=== PATIENT | male | born 1945 | race Caucasian/White ===

== ENCOUNTER 2016-12-25 10:55 | Outpatient (CLI) | payer MEDICARE, OTHER | END 2016-12-25 10:56 | disposition home or self-care (01) | DX: R03.0 Elevated blood-pressure reading, without diagnosis of hypertension (principal); N40.1 Benign prostatic hyperplasia with lower urinary tract symptoms; E78.5 Hyperlipidemia, unspecified ==

== ENCOUNTER 2017-03-17 11:13 | Outpatient (CLI) | payer MEDICARE, OTHER | END 2017-03-17 11:14 | disposition short-term general hospital (02) | DX: M25.561 Pain in right knee (principal); M79.89 Other specified soft tissue disorders | CPT/HCPCS: A0425; A0429 ==

== ENCOUNTER 2017-08-08 09:24 | Outpatient (CLI) | payer MEDICARE, OTHER ==
[2017-08-08 13:23] LABS: BASOPHILS % (AUTO) 0.9 %; EOSINOPHILS # (AUTO) 0.1 10^3/uL (0.0-0.7); EOSINOPHILS % (AUTO) 1.5 %; HGB - HEMOGLOBIN 15.3 g/dL (14.0-18.0); LYMPHOCYTES # (AUTO) 1.2 10^3/uL (1.5-3.5); LYMPHOCYTES % (AUTO) 30.4 %; MEAN CORPUSCULAR HGB CONC 33.4 g/dL (32.0-36.0); MEAN PLATELET VOLUME 10.2 fL (7.4-11.4); MONOCYTES # (AUTO) 0.4 10^3/uL (0.0-1.0); NEUTROPHILS # (AUTO) 2.2 10^3/uL (1.5-6.6); NEUTROPHILS % (AUTO) 57.2 %; NUCLEATED RED BLOOD CELLS AUTO 0.2 /100WBC; RED BLOOD COUNT 4.94 10^6/uL (4.70-6.10); RED CELL DISTRIBUTION WIDTH 13.3 % (12.0-15.0); UNCORRECTED WHITE BLOOD COUNT 3.9 x10^3/uL; WHITE BLOOD COUNT 3.9 x10^3/uL (4.8-10.8)
== END 2017-08-08 09:25 | disposition home or self-care (01) ==
LOC: LAB.WCP 09:24
PROVIDERS: ATTEND Family Medicine
DX: R68.82 Decreased libido (principal); R03.0 Elevated blood-pressure reading, without diagnosis of hypertension
CPT/HCPCS: 36415; 84403; 84443; 85025

== ENCOUNTER 2017-09-09 13:03 | Outpatient (CLI) | payer MEDICARE, OTHER | END 2017-09-09 13:04 | disposition home or self-care (01) | LOC: SC 13:03 | PROVIDERS: ATTEND Internal Medicine Pulmonary Disease | DX: G47.00 Insomnia, unspecified (principal); G47.30 Sleep apnea, unspecified | CPT/HCPCS: 99203; G0463; 99212 ==

== ENCOUNTER 2018-01-22 15:59 | Emergency (ER) | payer MEDICARE, OTHER ==
--- NOTE | 2018-01-22 16:25 | ED Physician Documentation ---
PD HPI DYSPNEA - Stated complaint Stated Complaint: productive cou/FEVER - Chief complaint Chief Complaint: Resp - History obtained from History obtained from: Patient (3 days of productive cough with green sputum, mild shortness of breath but fevers chills and myalgias as well.), Family Review of Systems Constitutional: reports: Fever, Chills, Sweats Nose: reports: Rhinorrhea / runny nose, Sinus pressure / pain Throat: reports: Sore throat Respiratory: reports: Dyspnea, Cough GI: denies: Abdominal Pain PD PAST MEDICAL HISTORY - Past Medical History Neuro: None : Benign prostate hypertrophy Musculoskeletal: Fibromyalgia - Past Surgical History Past Surgical History: Yes Ortho: Rotator cuff repair, Arthroscopic surgery Cardiovascular: Angioplasty - Present Medications Home Medications: Ambulatory Orders Medication Instructions Recorded Confirmed Oseltamivir [Tamiflu] 75 mg PO BID #10 capsule 01/22/18 - Allergies Allergies/Adverse Reactions: Allergies Allergy/AdvReac Type Severity Reaction Status Date / Time flu and pnu vaccine Allergy Unknown Uncoded 01/22/18 16:07 - Social History Does the pt smoke?: No Smoking Status: Never smoker Does the pt drink ETOH?: Yes Does the pt have substance abuse?: No - Immunizations Immunizations are current?: No - POLST Patient has POLST: Yes PD ED PE NORMAL - Vitals Vital signs reviewed: Yes - General General: Alert and oriented X 3, No acute distress - HEENT HEENT: PERRL, EOMI, Ears normal, Pharynx benign - Neck Neck: Supple, no meningeal sign, No bony TTP - Cardiac Cardiac: RRR, No murmur - Respiratory Respiratory: No respiratory distress, Other (Slightly rhonchorous and diminished throughout) - Abdomen Abdomen: Non tender - Derm Derm: No rash - Neuro Neuro: Alert and oriented X 3, Normal speech Results - Vitals Vitals: Vital Signs - 24 hr 01/22/18 16:04 Temperature 38.5 C H Heart Rate 81 Respiratory 16 Rate Blood Pressure 163/66 H O2 Saturation 97 Oxygen O2 Source Room air - Labs Labs: Laboratory Tests 01/22/18 01/22/18 01/22/18 16:39 16:39 16:53 WBC 7.3 RBC 4.52 L Hgb 14.2 Hct 41.1 L MCV 90.8 MCH 31.3 H MCHC 34.5 RDW 12.8 Plt Count 115 L MPV 10.0 Neut # 6.3 Lymph # 0.3 L [place] # 0.6 Eos # 0.0 Baso # 0.0 Absolute Nucleated RBC 0.00 Nucleated RBC % 0.0 Sodium 133 L Potassium 3.8 Chloride 102 Carbon Dioxide 22 Anion Gap 9.0 BUN 13 Creatinine 0.9 Estimated GFR (MDRD) 83 L Glucose 165 H Calcium 8.8 Total Bilirubin 0.5 AST 95 H ALT 99 H Alkaline Phosphatase 93 Total Protein 6.3 L Albumin 3.9 Globulin 2.4 Albumin/Globulin Ratio 1.6 Lipase 25 Influenza A (Rapid) Negative Influenza B (Rapid) POSITIVE H Influenza Types A,B Ag + H - Rads (name of study) 2v chest Radiology: EMP read contemporaneously (NAD) Departure - Departure Disposition: 01 Home, Self Care Clinical Impression: Influenza B Condition: Good Record reviewed to determine appropriate education?: Yes Instructions: ED Flu Prescriptions: Oseltamivir [Tamiflu] 75 mg PO BID #10 capsule Comments: Call your doctor to arrange a follow-up appointment, make the next available appointment. In the interim, return anytime if worse or if new symptoms develop. Your blood pressure was elevated today on check into the emergency department. This does not mean that you have hypertension, it is a common phenomenon to come to the emergency department and have elevated blood pressure. I recommend that you see your primary care physician within the week to have it rechecked when you are feeling better.
[2018-01-22 16:45] LABS: BASOPHILS % (AUTO) 0.5 %; EOSINOPHILS % (AUTO) 0.3 %; HGB - HEMOGLOBIN 14.2 g/dL (14.0-18.0); LYMPHOCYTES # (AUTO) 0.3 10^3/uL (1.5-3.5); LYMPHOCYTES % (AUTO) 4.6 %; MEAN CORPUSCULAR HEMOGLOBIN 31.3 pg (27.0-31.0); MEAN CORPUSCULAR HGB CONC 34.5 g/dL (32.0-36.0); MEAN CORPUSCULAR VOLUME 90.8 fL (80.0-94.0); MONOCYTES # (AUTO) 0.6 10^3/uL (0.0-1.0); MONOCYTES % (AUTO) 8.5 %; NEUTROPHILS # (AUTO) 6.3 10^3/uL (1.5-6.6); NEUTROPHILS % (AUTO) 86.1 %; PLT - PLATELET COUNT 115 10^3/uL (130-450); RED BLOOD COUNT 4.52 10^6/uL (4.70-6.10); RED CELL DISTRIBUTION WIDTH 12.8 % (12.0-15.0); WHITE BLOOD COUNT 7.3 x10^3/uL (4.8-10.8)
--- NOTE | 2018-01-22 16:49 | XRAY Report ---
EXAM: CHEST RADIOGRAPHY EXAM DATE: 01/22/2018 04:36 PM. CLINICAL HISTORY: Productive cough. COMPARISON: 08/31/2014. TECHNIQUE: 2 views. FINDINGS: Lungs/Pleura: Hyperexpanded with flattened diaphragm and coarse lung markings compatible with COPD. N o localized infiltrate, consolidation, effusion, or pneumothorax. Mediastinum: Heart and mediastinal contours are unremarkable. Other: Degenerative changes. IMPRESSION: No acute disease. [facility] Referring Provider Line: [phone] SITE ID: [id number]
[2018-01-22 16:56] LABS: ALBUMIN 3.9 g/dL (3.2-5.5); ALBUMIN/GLOBULIN RATIO 1.6 (1.0-2.2); BILIRUBIN,TOTAL 0.5 mg/dL (0.2-1.0); CALCIUM 8.8 mg/dL (8.5-10.3); CREATININE 0.9 mg/dL (0.6-1.2); TOTAL PROTEIN 6.3 g/dL (6.7-8.2)
[2018-01-22 17:47] VITALS: BP 109/65
== END 2018-01-22 17:48 | disposition home or self-care (01) ==
LOC: ED 15:59
DX: J10.1 Influenza due to other identified influenza virus with other respiratory manifestations (principal); R03.0 Elevated blood-pressure reading, without diagnosis of hypertension
CPT/HCPCS: 36415; 71046; 80053; 83690; 85025; 87275; 87276; 99283; 99284

== ENCOUNTER 2018-01-23 23:14 | Emergency (ER) | payer MEDICARE, OTHER ==
--- NOTE | 2018-01-24 00:41 | ED Physician Documentation ---
PD HPI DYSPNEA - Stated complaint Stated Complaint: SOA - Chief complaint Chief Complaint: Resp - History obtained from History obtained from: Patient - History of Present Illness Timing - onset: How many days ago (2-3) Timing - duration: Days Timing - details: Gradual onset, Waxing and waning Pain level now: 6 (generalized myalgias, ORELLANA, chest pain with coughing) Improved by: Rest Worsened by: Coughing Associated symptoms: Fever, Cough, Chest pain / discomfort (only with coughing) . No: Wheezing, Palpitations, Bilateral edema, Unilateral edema Similar symptoms before: Diagnosis (influenza B) Recently seen: Emergency Dept - Additional information Additional information: T+R from this ED 2 days ago, diagnosed with influenza B and prescribed Tamiflu. Returns due to increasing chest congestion as well as generalized headache and myalgias. He has taken hydrocodone as well as oxycodone that he has for fibromyalgia (PRN rx) with some relief, but is out of the oxycodone (he only had few tabs remaining from old rx) PD PAST MEDICAL HISTORY - Past Medical History Past Medical History: Yes Respiratory: Pneumonia Neuro: None : Benign prostate hypertrophy Musculoskeletal: Fibromyalgia - Past Surgical History Past Surgical History: Yes Ortho: Rotator cuff repair, Arthroscopic surgery Cardiovascular: Angioplasty - Present Medications Home Medications: Ambulatory Orders Medication Instructions Recorded Confirmed Oseltamivir [Tamiflu] 75 mg PO BID #10 capsule 01/22/18 Tamsulosin [Flomax] 01/23/18 oxyCODONE [Roxicodone] 01/23/18 traMADol [Ultram] 01/23/18 Azithromycin 250 mg PO DAILY #4 tablet 01/24/18 oxyCODONE [Roxicodone] 5 - 10 mg PO Q6H PRN #20 tablet 01/24/18 - Allergies Allergies/Adverse Reactions: Allergies Allergy/AdvReac Type Severity Reaction Status Date / Time flu and pnu vaccine Allergy Unknown Uncoded 01/22/18 16:07 - Social History Does the pt smoke?: No Smoking Status: Never smoker Does the pt drink ETOH?: Yes Does the pt have substance abuse?: No - Immunizations Immunizations are current?: No - POLST Patient has POLST: Yes PD ED PE NORMAL - Vitals Vital signs reviewed: Yes - General General: Alert and oriented X 3, No acute distress, Well developed/nourished - HEENT HEENT: Moist mucous membranes - Neck Neck: Supple, no meningeal sign - Cardiac Cardiac: RRR, No murmur, No gallop, No rub - Respiratory Respiratory: No respiratory distress, Other (bibasilar rhonchi without wheezing ; there is good air flow bilaterally. occasional productive cough during H+P ( productive of thick green/brown sputum)) - Abdomen Abdomen: Soft, Non tender - Extremities Extremities: No edema Results - Vitals Vitals: Vital Signs - 24 hr 01/23/18 01/23/18 01/24/18 23:21 23:36 00:25 Temperature 37.4 C Heart Rate 81 82 81 Respiratory 20 17 18 Rate Blood Pressure 146/69 H 144/63 H 117/73 O2 Saturation 94 95 96 01/24/18 01/24/18 01:00 02:00 Temperature 37.0 C Heart Rate 75 74 Respiratory 18 17 Rate Blood Pressure 118/65 117/84 H O2 Saturation 96 96 Oxygen O2 Source Room air - Rads (name of study) chest xray Radiology: Prelim report reviewed, See rad report PD MEDICAL DECISION MAKING - ED course Complexity details: reviewed old records, reviewed results, re-evaluated patient , considered differential, d/w patient Departure - Departure Disposition: 01 Home, Self Care Clinical Impression: Influenza B Pneumonia Qualifiers: Pneumonia type: due to unspecified organism Laterality: bilateral Lung location : lower lobe of lung Qualified Code(s): J18.9 - Pneumonia, unspecified organism Condition: Good Instructions: ED Flu, ED Pneumonia Adult Follow-Up: Juliann Atkinson DO [Primary Care Provider] - (3-5 days if symptoms persist) Prescriptions: Azithromycin 250 mg PO DAILY #4 tablet oxyCODONE [Roxicodone] 5 - 10 mg PO Q6H PRN #20 tablet PRN Reason: Pain Comments: You should also take guaifenesin, which is an yjop-smw-rgloxui expectorant ( Mucinex is one brand name, although generic will work just as well). This will help loosen the chest congestion and allow the cough to be more productive. Discharge Date/Time: 01/24/18 02:05
--- NOTE | 2018-01-24 01:15 | XRAY Preliminary Report ---
Exam: XR CHEST 2 VIEW X-RAY IMPRESSION: 1. Patchy bilateral lower lobe opacities concerning for developing infiltrates. Probable small effusi ons. 2. No pneumothorax. [facility] SITE ID: [id number]
[2018-01-24] MEDS ORDERED: oxyCODONE 5 MG TABLET PO STA (01:35)
[2018-01-24] MEDS ORDERED: AZITHROMYCIN 250 MG TABLET PO STA (01:51)
[2018-01-24] MEDS ORDERED: guaiFENesin 600 MG TABLET PO SCH (02:00)
--- NOTE | 2018-01-24 02:00 | XRAY Report ---
EXAM: CHEST RADIOGRAPHY EXAM DATE: 01/24/2018 01:09 AM. CLINICAL HISTORY: Cough, dyspnea, influenza. COMPARISON: 01/22/2018. TECHNIQUE: 2 views. FINDINGS: Lungs/Pleura: Patchy right lower lobe opacities are noted. Platelike densities also noted at the left lung base. Small effusions on the lateral view. No pneumothorax. Mediastinum: Heart and mediastinal contours are unremarkable. Other: None. IMPRESSION: 1. Patchy bilateral lower lobe opacities concerning for developing infiltrates. Probable small effusi ons. 2. No pneumothorax. [facility] Referring Provider Line: [phone] SITE ID: [id number]
[2018-01-24 02:07] VITALS: BP 117/84
[2018-01-24] MEDS ORDERED: guaiFENesin 600 MG TABLET PO ONE (02:07)
== END 2018-01-24 02:05 | disposition home or self-care (01) ==
LOC: ED 23:14
DX: J10.00 Influenza due to other identified influenza virus with unspecified type of pneumonia (principal)
CPT/HCPCS: 71046; 99283; 99284; A9270

== ENCOUNTER 2018-01-26 19:56 | Emergency (ER) | payer MEDICARE, OTHER ==
[2018-01-26] MEDS ORDERED: LIDOCAINE VISCOUS 2% 15 ML UDC MM STA (21:24)
[2018-01-26] MEDS ORDERED: MAG HYDROX/AL HYDROX/SIMETH 30 ML UDC PO STA (21:25)
[2018-01-26] MEDS ORDERED: SUCRALFATE 1 GM/10 ML UDC PO STA (21:25)
[2018-01-26] MEDS ORDERED: ONDANSETRON ODT 4 MG TABLET TL STA (21:25)
--- NOTE | 2018-01-26 21:28 | ED Physician Documentation ---
History of Present Illness - Stated complaint Stated Complaint: NAUSEA/ORELLANA - Chief complaint Chief Complaint: General - History obtained from History obtained from: Patient, Family - History of Present Illness Timing: How many days ago (2) - Additonal information Additional information: 72-year-old male is been sick with influenza for the past 6 days. He feels that the influenza portion of this illness appears to be improving. He has developed some nausea and has not been able to eat for the past 36 hours. He has been able to drink some fluids and he states that he feels that the rest of the illness the fever cough congestion sore throat have all improved. He does have allodynia he does have some fibromyalgia and this typically happens to him when he is sick that he has pain all over. He has been taking some ibuprofen and he has been taking this on an empty stomach. He has not had problems before taking pills and getting nauseated from any type of medication. He does state that he did not take the azithromycin as he felt that his illness was getting substantially better.He did talk to Michelet Huizar who told him it would probably be a good idea to get some Zofran. Review of Systems Constitutional: reports: Myalgias, Fatigue. denies: Fever, Chills Eyes: denies: Decreased vision Ears: denies: Ear pain Nose: denies: Rhinorrhea / runny nose, Congestion Throat: denies: Sore throat Cardiac: denies: Chest pain / pressure, Palpitations Respiratory: denies: Dyspnea, Cough GI: reports: Abdominal Pain, Nausea : denies: Dysuria, Frequency Skin: denies: Rash Musculoskeletal: reports: Back pain. denies: Neck pain Neurologic: denies: Generalized weakness, Focal weakness, Numbness PD PAST MEDICAL HISTORY - Past Medical History Past Medical History: Yes Respiratory: Pneumonia Neuro: None : Benign prostate hypertrophy Musculoskeletal: Fibromyalgia - Past Surgical History Past Surgical History: Yes Ortho: Rotator cuff repair, Arthroscopic surgery Cardiovascular: Angioplasty - Present Medications Home Medications: Ambulatory Orders Medication Instructions Recorded Confirmed Oseltamivir [Tamiflu] 75 mg PO BID #10 capsule 01/22/18 Tamsulosin [Flomax] 01/23/18 oxyCODONE [Roxicodone] 01/23/18 traMADol [Ultram] 01/23/18 Azithromycin 250 mg PO DAILY #4 tablet 01/24/18 oxyCODONE [Roxicodone] 5 - 10 mg PO Q6H PRN #20 tablet 01/24/18 Ondansetron Odt [Zofran] 4 mg TL Q6H PRN #10 tablet 01/26/18 Sucralfate [Carafate] 1 gm PO ACHS #30 tablet 01/26/18 - Allergies Allergies/Adverse Reactions: Allergies Allergy/AdvReac Type Severity Reaction Status Date / Time flu and pnu vaccine Allergy Unknown Uncoded 01/26/18 20:12 - Social History Does the pt smoke?: No Smoking Status: Never smoker Does the pt drink ETOH?: Yes Does the pt have substance abuse?: No - Immunizations Immunizations are current?: No - POLST Patient has POLST: Yes PD ED PE NORMAL - Vitals Vital signs reviewed: Yes (hypertensive ) - General General: Alert and oriented X 3, No acute distress, Well developed/nourished - HEENT HEENT: Atraumatic, PERRL, EOMI, Ears normal, Other (dry mucous membranes) - Neck Neck: Supple, no meningeal sign, No bony TTP - Cardiac Cardiac: RRR, No murmur - Respiratory Respiratory: No respiratory distress, Clear bilaterally - Abdomen Abdomen: Soft, Other (mild epigastric tenderness) - Back Back: No CVA TTP, No spinal TTP - Derm Derm: Normal color, Warm and dry, No rash - Extremities Extremities: No deformity, Normal ROM s pain, No edema - Neuro Neuro: Alert and oriented X 3, vault person 2-12 intact, No motor deficit, No sensory deficit, Normal speech Eye Opening: Spontaneous Motor: Obeys Commands Verbal: Oriented GCS Score: 15 - Psych Psych: Normal mood, Normal affect Results - Vitals Vitals: Vital Signs - 24 hr 01/26/18 01/26/18 20:09 21:40 Temperature 36.8 C 36.9 C Heart Rate 65 65 Respiratory 16 20 Rate Blood Pressure 156/80 H 165/83 H O2 Saturation 99 98 Oxygen O2 Source Room air PD MEDICAL DECISION MAKING - ED course Complexity details: reviewed old records, reviewed results, re-evaluated patient , considered differential, d/w patient, d/w family ED course: 72-year-old male with nearly resolved influenza has developed some nausea and has not been able to eat. Here in the emergency department he is given some viscous lidocaine and Mylanta with Carafate and this seems to have quelled his stomach quite a bit he also took some Zofran and his nausea is now resolved. I suspect that his symptoms that he is come to the emergency department they are related to gastritis related to taking ibuprofen on an empty stomach. I recommended that he take some Pepcid AC for the next week and I prescribed provided a prescription for some Carafate and some Zofran. Departure - Departure Disposition: Home, Self Care Clinical Impression: Gastritis Qualifiers: Gastritis type: unspecified gastritis Chronicity: acute Gastritis bleeding: without bleeding Qualified Code(s): K29.00 - Acute gastritis without bleeding Condition: Stable Instructions: ED PUD Vs Gastritis Follow-Up: Juliann Atkinson DO [Primary Care Provider] - Prescriptions: Ondansetron Odt [Zofran] 4 mg TL Q6H PRN #10 tablet PRN Reason: Nausea / Vomiting Sucralfate [Carafate] 1 gm PO ACHS #30 tablet Comments: Today it appears that your influenza illness is nearly resolved and it also appears that you have an upset stomach very likely related to the ingestion of ibuprofen without food. This is diagnosed as gastritis or irritation of the stomach lining and this should heal up fairly quickly. I recommend that you take some Pepcid AC for the next week and take the Carafate as prescribed. In the future when you are taking ibuprofen make certain you are taking this with food.
[2018-01-26 21:41] VITALS: BP 165/83
[2018-01-26] MEDS ORDERED: ONDANSETRON ODT 4 MG Prepack 2 TL PRN (22:03)
== END 2018-01-26 22:12 | disposition home or self-care (01) ==
LOC: ED 19:56
DX: K29.00 Acute gastritis without bleeding (principal)
CPT/HCPCS: 99283; A9270; Q0162

== ENCOUNTER 2018-02-17 09:50 | Outpatient (CLI) | payer MEDICARE, OTHER ==
[2018-02-17 12:30] LABS: BASOPHILS # (AUTO) 0.1 10^3/uL (0.0-0.1); BASOPHILS % (AUTO) 2.6 %; EOSINOPHILS # (AUTO) 0.1 10^3/uL (0.0-0.7); EOSINOPHILS % (AUTO) 1.9 %; HGB - HEMOGLOBIN 15.3 g/dL (14.0-18.0); LYMPHOCYTES # (AUTO) 1.5 10^3/uL (1.5-3.5); LYMPHOCYTES % (AUTO) 35.4 %; MEAN CORPUSCULAR HEMOGLOBIN 31.4 pg (27.0-31.0); MEAN CORPUSCULAR HGB CONC 34.2 g/dL (32.0-36.0); MEAN CORPUSCULAR VOLUME 91.9 fL (80.0-94.0); MEAN PLATELET VOLUME 10.2 fL (7.4-11.4); MONOCYTES # (AUTO) 0.5 10^3/uL (0.0-1.0); NEUTROPHILS # (AUTO) 2.1 10^3/uL (1.5-6.6); NEUTROPHILS % (AUTO) 49.1 %; PLT - PLATELET COUNT 197 10^3/uL (130-450); RED BLOOD COUNT 4.88 10^6/uL (4.70-6.10); RED CELL DISTRIBUTION WIDTH 13.1 % (12.0-15.0); WHITE BLOOD COUNT 4.2 x10^3/uL (4.8-10.8)
[2018-02-17 12:59] LABS: ALBUMIN 4.2 g/dL (3.2-5.5); ALBUMIN/GLOBULIN RATIO 1.4 (1.0-2.2); ALKALINE PHOSPHATASE 63 IU/L (42-121); ALT ALANINE AMINOTRANSFERASE 22 IU/L (10-60); AST ASPARTATE AMINOTRANSFERASE 25 IU/L (10-42); BUN - BLOOD UREA NITROGEN 16 mg/dL (6-20); CALCIUM 9.4 mg/dL (8.5-10.3); CARBON DIOXIDE - CO2 29 mmol/L (21-32); CHLORIDE 102 mmol/L (101-111); CHOL/HDL RATIO 3.1 (<5.0); CHOLESTEROL 219 mg/dL; CREATININE 0.9 mg/dL (0.6-1.2); GFR - MDRD 83 (>89); GLUCOSE 90 mg/dL (70-100); HDL CHOLESTEROL 70 mg/dL; LDL CHOLESTEROL,CALCULATED 126 mg/dL; LDL/HDL RATIO 1.8 (<3.6); SODIUM 137 mmol/L (135-145); TOTAL PROTEIN 7.1 g/dL (6.7-8.2); VLDL CHOLESTEROL 23 mg/dL
[2018-02-17 13:00] LABS: PSA SCREEN (Z12.5) 2.68 ng/mL (0.000-2.000)
== END 2018-02-17 09:51 | disposition home or self-care (01) ==
LOC: LAB.WCP 09:50
PROVIDERS: ATTEND Family Medicine
DX: R03.0 Elevated blood-pressure reading, without diagnosis of hypertension (principal); E78.9 Disorder of lipoprotein metabolism, unspecified; E55.9 Vitamin D deficiency, unspecified; E29.8 Other testicular dysfunction; Z12.5 Encounter for screening for malignant neoplasm of prostate
CPT/HCPCS: 36415; 80053; 80061; 82306; 84403; 85025; G0103; 83721; 84153

== ENCOUNTER 2018-08-14 09:56 | Outpatient (CLI) | payer MEDICARE, OTHER ==
[2018-08-14] MEDS ORDERED: IOPAMIDOL-300 100 ML VIAL ONE (10:33)
--- NOTE | 2018-08-15 06:28 | CT Report ---
Reason: COUGH Procedure Date: 08/14/2018 Accession Number: [id number] / [id number] Procedure: CT - Chest W/ CPT Code: FULL RESULT: EXAM: CT CHEST EXAM DATE: 08/14/2018 11:13 AM. CLINICAL HISTORY: COUGH. COMPARISONS: None. TECHNIQUE: Routine helical CT imaging was performed through the chest. IV contrast: Isovue-300, 100 cc. Reconstructions: Coronal and sagittal. In accordance with CT protocol optimization, one or more of the following dose reduction techniques were utilized for this exam: automated exposure control, adjustment of mA and/or KV based on patient size, or use of iterative reconstructive technique. FINDINGS: Lungs/Pleura: Mild bibasilar atelectasis. No alveolar consolidation. No pleural effusion. Possible emphysema. No pneumothorax. Mediastinum: Heart size is normal. Coronary artery calcifications. Normal sized mediastinal lymph nodes. Ascending aorta measures 3.1 cm. No aortic dissection. Bones: Degenerative changes in the spine. Mild scoliosis. Visualized Abdomen: Unremarkable. Other: None. IMPRESSION: 1. Possible emphysema with mild bibasilar atelectasis. 2. Coronary artery calcifications. [facility]
[2018-08-19] MEDS ORDERED: IOPAMIDOL-300 100 ML VIAL IVP ONE (07:36)
== END 2018-08-14 09:57 | disposition home or self-care (01) ==
LOC: LAB 09:56 → DI 09:57
PROVIDERS: ATTEND Family Medicine
DX: R05 Cough (principal)
CPT/HCPCS: 36415; 71260; 82565; Q9967

== ENCOUNTER 2019-05-20 08:00 | Outpatient (CLI) | payer MEDICARE, OTHER ==
[2019-05-20 19:34] LABS: BASOPHILS # (AUTO) 0.1 10^3/uL (0.0-0.1); BASOPHILS % (AUTO) 1.2 %; EOSINOPHILS # (AUTO) 0.1 10^3/uL (0.0-0.7); EOSINOPHILS % (AUTO) 0.8 %; HGB - HEMOGLOBIN 15.9 g/dL (14.0-18.0); LYMPHOCYTES # (AUTO) 0.9 10^3/uL (1.5-3.5); MEAN CORPUSCULAR HEMOGLOBIN 31.9 pg (27.0-31.0); MEAN CORPUSCULAR HGB CONC 33.1 g/dL (32.0-36.0); MEAN CORPUSCULAR VOLUME 96.4 fL (80.0-94.0); MEAN PLATELET VOLUME 12.4 fL (7.4-11.4); MONOCYTES # (AUTO) 0.6 10^3/uL (0.0-1.0); MONOCYTES % (AUTO) 9.3 %; NEUTROPHILS # (AUTO) 4.4 10^3/uL (1.5-6.6); NEUTROPHILS % (AUTO) 73.5 %; PLT - PLATELET COUNT 165 10^3/uL (130-450); RED BLOOD COUNT 4.99 10^6/uL (4.70-6.10); RED CELL DISTRIBUTION WIDTH 13.1 % (12.0-15.0)
== END 2019-05-20 08:01 | disposition home or self-care (01) ==
LOC: LAB.R 08:00
PROVIDERS: ATTEND Family Medicine
DX: E29.8 Other testicular dysfunction (principal)
CPT/HCPCS: 36415; 84403; 85025

== ENCOUNTER 2019-07-03 13:21 | Outpatient (CLI) | payer MEDICARE, OTHER ==
[~2019-07-03 13:21] MED LIST: ALBUTEROL NEB 2.5 MG/3 ML INH ONE
== END 2019-07-03 13:22 | disposition home or self-care (01) ==
LOC: RT 13:21
PROVIDERS: ATTEND Family Medicine
DX: R05 Cough (principal)
CPT/HCPCS: 94010; 94729

== ENCOUNTER 2019-09-11 10:20 | Outpatient (CLI) | payer MEDICARE, OTHER ==
--- NOTE | 2019-09-13 02:10 | Ultrasound Report ---
Reason: BONE SOFT TISSUE AND SKIN NEOPLASM Procedure Date: 09/11/2019 Accession Number: [id number] / [id number] Procedure: US - Chest CPT Code: FULL RESULT: EXAM: ABDOMEN ULTRASOUND LIMITED EXAM DATE: 09/11/2019 11:25 AM. CLINICAL HISTORY: BONE SOFT TISSUE AND SKIN NEOPLASM. COMPARISON: None. TECHNIQUE: Real-time scanning was performed with static images obtained. FINDINGS: Scanning of the epigastric region of interest demonstrates a small anterior abdominal wall hernia, with hernia neck measuring 1 cm. Fat is contained within the hernia sac, but no bowel herniation is identified. IMPRESSION: Small fat-containing hernia in the midline epigastrium. [facility]
== END 2019-09-11 10:21 | disposition home or self-care (01) ==
LOC: DI 10:20
PROVIDERS: ATTEND Family Medicine
DX: K43.9 Ventral hernia without obstruction or gangrene (principal)
CPT/HCPCS: 76604

== ENCOUNTER 2020-05-13 08:15 | Outpatient (CLI) | payer MEDICARE, OTHER ==
[2020-05-13 12:17] LABS: BASOPHILS # (AUTO) 0.1 10^3/uL (0.0-0.1); BASOPHILS % (AUTO) 0.9 %; EOSINOPHILS # (AUTO) 0.1 10^3/uL (0.0-0.7); EOSINOPHILS % (AUTO) 0.9 %; LYMPHOCYTES % (AUTO) 26.7 %; MEAN CORPUSCULAR HEMOGLOBIN 31.3 pg (27.0-31.0); MEAN CORPUSCULAR HGB CONC 33.1 g/dL (32.0-36.0); MEAN CORPUSCULAR VOLUME 94.3 fL (80.0-94.0); MEAN PLATELET VOLUME 12.5 fL (7.4-11.4); MONOCYTES # (AUTO) 0.6 10^3/uL (0.0-1.0); MONOCYTES % (AUTO) 8.3 %; NEUTROPHILS # (AUTO) 4.6 10^3/uL (1.5-6.6); NEUTROPHILS % (AUTO) 62.8 %; PLT - PLATELET COUNT 184 10^3/uL (130-450); RED BLOOD COUNT 5.12 10^6/uL (4.70-6.10); RED CELL DISTRIBUTION WIDTH 12.7 % (12.0-15.0); WHITE BLOOD COUNT 7.4 x10^3/uL (4.8-10.8)
[2020-05-13 13:07] LABS: ALBUMIN 4.3 g/dL (3.2-5.5); ALBUMIN/GLOBULIN RATIO 1.8 (1.0-2.2); ALKALINE PHOSPHATASE 55 IU/L (42-121); ALT ALANINE AMINOTRANSFERASE 19 IU/L (10-60); AST ASPARTATE AMINOTRANSFERASE 19 IU/L (10-42); BILIRUBIN,TOTAL 1.1 mg/dL (0.2-1.0); BUN - BLOOD UREA NITROGEN 23 mg/dL (6-20); CALCIUM 9.8 mg/dL (8.5-10.3); CARBON DIOXIDE - CO2 29 mmol/L (21-32); CHLORIDE 100 mmol/L (101-111); CHOL/HDL RATIO 2.6 (<5.0); CHOLESTEROL 229 mg/dL; CREATININE 0.9 mg/dL (0.6-1.2); GLUCOSE 86 mg/dL (70-100); HDL CHOLESTEROL 89 mg/dL; LDL CHOLESTEROL,CALCULATED 128 mg/dL; LDL/HDL RATIO 1.4 (<3.6); SODIUM 138 mmol/L (135-145); TOTAL PROTEIN 6.7 g/dL (6.7-8.2); VLDL CHOLESTEROL 12 mg/dL
== END 2020-05-13 23:59 | disposition home or self-care (01) ==
LOC: LAB.WCP 08:15
PROVIDERS: ATTEND Family Medicine
DX: Z79.891 Long term (current) use of opiate analgesic (principal); Z12.5 Encounter for screening for malignant neoplasm of prostate; E78.5 Hyperlipidemia, unspecified; E29.8 Other testicular dysfunction; R05 Cough; D49.2 Neoplasm of unspecified behavior of bone, soft tissue, and skin; M79.7 Fibromyalgia
CPT/HCPCS: 36415; 80053; 80061; 84403; 84443; 85025; G0103; 83721; 84153

== ENCOUNTER 2021-05-04 08:00 | Outpatient (CLI) | payer MEDICARE, OTHER ==
[2021-05-04 17:54] LABS: BASOPHILS # (AUTO) 0.1 10^3/uL (0.0-0.1); BASOPHILS % (AUTO) 1.4 %; EOSINOPHILS # (AUTO) 0.1 10^3/uL (0.0-0.7); EOSINOPHILS % (AUTO) 2.3 %; HGB - HEMOGLOBIN 16.3 g/dL (14.0-18.0); LYMPHOCYTES # (AUTO) 1.1 10^3/uL (1.5-3.5); LYMPHOCYTES % (AUTO) 32.4 %; MEAN CORPUSCULAR HEMOGLOBIN 32.5 pg (27.0-31.0); MEAN CORPUSCULAR HGB CONC 33.3 g/dL (32.0-36.0); MEAN CORPUSCULAR VOLUME 97.8 fL (80.0-94.0); MEAN PLATELET VOLUME 12.7 fL (7.4-11.4); MONOCYTES # (AUTO) 0.5 10^3/uL (0.0-1.0); MONOCYTES % (AUTO) 15.3 %; NEUTROPHILS # (AUTO) 1.7 10^3/uL (1.5-6.6); NEUTROPHILS % (AUTO) 48.3 %; PLT - PLATELET COUNT 155 10^3/uL (130-450); RED BLOOD COUNT 5.01 10^6/uL (4.70-6.10); RED CELL DISTRIBUTION WIDTH 12.8 % (12.0-15.0); WHITE BLOOD COUNT 3.5 x10^3/uL (4.8-10.8)
[2021-05-04 18:14] LABS: ALBUMIN 4.3 g/dL (3.2-5.5); ALBUMIN/GLOBULIN RATIO 1.8 (1.0-2.2); ALKALINE PHOSPHATASE 50 IU/L (42-121); ALT ALANINE AMINOTRANSFERASE 21 IU/L (10-60); AST ASPARTATE AMINOTRANSFERASE 28 IU/L (10-42); BUN - BLOOD UREA NITROGEN 18 mg/dL (6-20); CALCIUM 9.3 mg/dL (8.5-10.3); CARBON DIOXIDE - CO2 29 mmol/L (21-32); CHLORIDE 102 mmol/L (101-111); CHOL/HDL RATIO 2.6 (<5.0); CHOLESTEROL 175 mg/dL; CREATININE 0.9 mg/dL (0.6-1.2); GFR - MDRD 82 (>89); GLUCOSE 81 mg/dL (70-100); HDL CHOLESTEROL 68 mg/dL; LDL CHOLESTEROL,CALCULATED 96 mg/dL; LDL/HDL RATIO 1.4 (<3.6); POTASSIUM 4.8 mmol/L (3.5-5.0); SODIUM 138 mmol/L (135-145); TOTAL PROTEIN 6.7 g/dL (6.7-8.2); TRIGLYCERIDES 57 mg/dL; VLDL CHOLESTEROL 11 mg/dL
[2021-05-16 10:39] LABS: TESTOSTERONE TTL MALE ADULT IA 983 (H)
[2021-05-16 10:40] LABS: ALBUMIN 4.2
[2021-05-16 10:41] LABS: SEX HORMONE BINDING GLOBULIN 70
== END 2021-05-04 23:59 | disposition home or self-care (01) ==
LOC: LAB.WCP 08:00
PROVIDERS: ATTEND Family Medicine
DX: E29.8 Other testicular dysfunction (principal); E78.5 Hyperlipidemia, unspecified
CPT/HCPCS: 36415; 80053; 80061; 82040; 83721; 84153; 84270; 84403; 85025

== ENCOUNTER 2022-02-22 09:52 | Outpatient (CLI) | payer MEDICARE, OTHER ==
[2022-02-22 11:52] LABS: BASOPHILS # (AUTO) 0.1 10^3/uL (0.0-0.1); BASOPHILS % (AUTO) 1.4 %; EOSINOPHILS # (AUTO) 0.1 10^3/uL (0.0-0.7); EOSINOPHILS % (AUTO) 1.9 %; HCT - HEMATOCRIT 45.1 % (42.0-52.0); HGB - HEMOGLOBIN 15.6 g/dL (14.0-18.0); LYMPHOCYTES % (AUTO) 24.8 %; MEAN CORPUSCULAR HGB CONC 34.6 g/dL (32.0-36.0); MEAN CORPUSCULAR VOLUME 92.6 fL (80.0-94.0); MEAN PLATELET VOLUME 12.4 fL (7.4-11.4); MONOCYTES # (AUTO) 0.4 10^3/uL (0.0-1.0); MONOCYTES % (AUTO) 10.6 %; NEUTROPHILS # (AUTO) 2.6 10^3/uL (1.5-6.6); NEUTROPHILS % (AUTO) 61.3 %; PLT - PLATELET COUNT 163 10^3/uL (130-450); RED BLOOD COUNT 4.87 10^6/uL (4.70-6.10); RED CELL DISTRIBUTION WIDTH 12.5 % (12.0-15.0); WHITE BLOOD COUNT 4.2 x10^3/uL (4.8-10.8)
[2022-02-22 12:18] LABS: ALBUMIN 4.5 g/dL (3.2-5.5); ALBUMIN/GLOBULIN RATIO 1.7 (1.0-2.2); ALKALINE PHOSPHATASE 46 IU/L (42-121); ALT ALANINE AMINOTRANSFERASE 15 IU/L (10-60); AST ASPARTATE AMINOTRANSFERASE 24 IU/L (10-42); BUN - BLOOD UREA NITROGEN 24 mg/dL (6-20); CALCIUM 9.8 mg/dL (8.5-10.3); CARBON DIOXIDE - CO2 27 mmol/L (21-32); CHLORIDE 100 mmol/L (101-111); CHOL/HDL RATIO 2.7 (<5.0); CHOLESTEROL 207 mg/dL; CREATININE 0.9 mg/dL (0.6-1.2); GFR - MDRD 82 (>89); GLUCOSE 94 mg/dL (70-100); HDL CHOLESTEROL 77 mg/dL; LDL CHOLESTEROL,CALCULATED 113 mg/dL; LDL/HDL RATIO 1.5 (<3.6); POTASSIUM 4.4 mmol/L (3.5-5.0); SODIUM 135 mmol/L (135-145); THYROID STIMULATING HORMONE 1.06 uIU/mL (0.34-5.60); TOTAL PROTEIN 7.1 g/dL (6.7-8.2); TRIGLYCERIDES 87 mg/dL; VLDL CHOLESTEROL 17 mg/dL
== END 2022-02-22 09:53 | disposition home or self-care (01) ==
LOC: LAB.N 09:52
PROVIDERS: ATTEND Family Medicine
DX: E78.5 Hyperlipidemia, unspecified (principal); N40.1 Benign prostatic hyperplasia with lower urinary tract symptoms; N13.8 Other obstructive and reflux uropathy; Z13.29 Encounter for screening for other suspected endocrine disorder; Z79.891 Long term (current) use of opiate analgesic; E29.1 Testicular hypofunction
CPT/HCPCS: 36415; 80053; 80061; 81599; 83721; 84153; 84402; 84403; 84443; 85025

== ENCOUNTER 2023-03-01 15:40 | Outpatient (CLI) | payer MEDICARE, OTHER ==
--- NOTE | 2023-03-01 19:12 | XRAY Report ---
PROCEDURE: Chest 2 View X-Ray INDICATIONS: ACUTE COUGH TECHNIQUE: 2 views of the chest were acquired. COMPARISON: None. FINDINGS: Surgical changes and devices: None. Lungs and pleura: No pleural effusions or pneumothorax. Lungs are clear. Mediastinum: Mediastinal contours appear normal. Heart size is normal. Bones and chest wall: No suspicious bony lesions. Overlying soft tissues appear unremarkable. IMPRESSION: Unremarkable two-view chest x-ray Reviewed by: Abiel Nagel MD on 03/01/2023 6:11 PM TIMMY Approved by: Abiel Nagel MD on 03/01/2023 6:11 PM AKDT Station ID: [id number]
== END 2023-03-01 15:41 | disposition home or self-care (01) ==
LOC: DI 15:40
PROVIDERS: ATTEND Registered Nurse
DX: R05.1 Acute cough (principal)

== ENCOUNTER 2023-09-11 11:37 | Outpatient (CLI) | payer MEDICARE, OTHER ==
[2023-09-11 11:53] LABS: BASOPHILS # (AUTO) 0.1 10^3/uL (0.0-0.1); BASOPHILS % (AUTO) 1.1 %; EOSINOPHILS # (AUTO) 0.1 10^3/uL (0.0-0.7); EOSINOPHILS % (AUTO) 1.4 %; HCT - HEMATOCRIT 44.8 % (42.0-52.0); HGB - HEMOGLOBIN 15.4 g/dL (14.0-18.0); LYMPHOCYTES % (AUTO) 23.6 %; MEAN CORPUSCULAR HEMOGLOBIN 31.2 pg (27.0-31.0); MEAN CORPUSCULAR HGB CONC 34.4 g/dL (32.0-36.0); MEAN CORPUSCULAR VOLUME 90.9 fL (80.0-94.0); MONOCYTES # (AUTO) 0.5 10^3/uL (0.0-1.0); MONOCYTES % (AUTO) 10.9 %; NEUTROPHILS # (AUTO) 2.8 10^3/uL (1.5-6.6); NEUTROPHILS % (AUTO) 62.8 %; PLT - PLATELET COUNT 200 10^3/uL (130-450); RED BLOOD COUNT 4.93 10^6/uL (4.70-6.10); RED CELL DISTRIBUTION WIDTH 12.5 % (12.0-15.0); WHITE BLOOD COUNT 4.4 x10^3/uL (4.8-10.8)
[2023-09-11 12:13] LABS: ALBUMIN 4.2 g/dL (3.2-5.5); ALBUMIN/GLOBULIN RATIO 1.6 (1.0-2.2); ALKALINE PHOSPHATASE 68 IU/L (42-121); ALT ALANINE AMINOTRANSFERASE 14 IU/L (10-60); AST ASPARTATE AMINOTRANSFERASE 21 IU/L (10-42); BILIRUBIN,TOTAL 0.8 mg/dL (0.2-1.0); BUN - BLOOD UREA NITROGEN 22 mg/dL (6-20); CALCIUM 9.6 mg/dL (8.5-10.3); CARBON DIOXIDE - CO2 31 mmol/L (21-32); CHLORIDE 100 mmol/L (101-111); CHOL/HDL RATIO 2.7 (<5.0); CHOLESTEROL 190 mg/dL; CREATININE 1.1 mg/dL (0.6-1.3); GFR - MDRD 65 (>89); GLUCOSE 84 mg/dL (74-104); HDL CHOLESTEROL 71 mg/dL; LDL CHOLESTEROL,CALCULATED 100 mg/dL; LDL/HDL RATIO 1.4 (<3.6); POTASSIUM 4.2 mmol/L (3.5-4.5); SODIUM 135 mmol/L (135-145); TOTAL PROTEIN 6.9 g/dL (6.4-8.9); TRIGLYCERIDES 95 mg/dL (48-352); VLDL CHOLESTEROL 19 mg/dL
[2023-09-11 12:23] LABS: THYROID STIMULATING HORMONE 1.48 uIU/mL (0.34-5.60)
== END 2023-09-11 11:38 | disposition home or self-care (01) ==
LOC: LAB 11:37
PROVIDERS: ATTEND Orthopaedic Surgery Hand Surgery
DX: Z01.818 Encounter for other preprocedural examination (principal); Z13.220 Encounter for screening for lipoid disorders; Z12.5 Encounter for screening for malignant neoplasm of prostate; E29.1 Testicular hypofunction
CPT/HCPCS: 36415; 80053; 80061; 84403; 84443; 85025; 93005; G0103; 83721; 84153

== ENCOUNTER 2023-11-01 09:59 | Outpatient (CLI) | payer MEDICARE, OTHER | END 2023-11-01 10:00 | disposition home or self-care (01) | LOC: LAB 09:59 | PROVIDERS: ATTEND Physician Assistant | DX: E29.8 Other testicular dysfunction (principal) | CPT/HCPCS: 36415; 84403 ==

== ENCOUNTER 2024-06-18 08:00 | Outpatient (CLI) | payer MEDICARE, OTHER | END 2024-06-18 23:59 | disposition home or self-care (01) | LOC: LAB.WCP 08:00 | DX: J02.9 Acute pharyngitis, unspecified (principal) | CPT/HCPCS: 87070 ==